=== PATIENT | male | born 1985 | race Hispanic/Latino ===

== ENCOUNTER 2019-12-02 00:06 | Observation (INO) | payer BC ==
[2019-12-02 01:34] LABS: Absolute Lymphocytes (CBC) 1.9 K/uL (0.7-4.9); Basophils % 0.9 % (0-1.3); Hematocrit 41.7 % (39.6-49.0); Lymphocytes % 33.6 % (15.3-44.8); MPV 9.4 fL (7.6-11.3); RBC Red Blood Cell Count 4.44 M/uL (4.33-5.43)
[2019-12-02 01:38] LABS: Protime INR 1.01
[2019-12-02 01:47] LABS: Urine Blood 1+ (NEG); Urine Glucose NEGATIVE (NEG); Urine Protein NEGATIVE (NEG); Urine Specific Gravity 1.015 (1.005-1.030); Urine pH 5.5 (5.0-7.0)
[2019-12-02 01:51] LABS: Potassium 3.7 mmol/L (3.5-5.1)
[2019-12-02] MEDS ORDERED: ASPIRIN 81 MG CHEWABLE TABLET ONE (02:16)
--- NOTE | 2019-12-02 02:29 | ER ---
Nurse's Notes [facility] Name: Tommie Montalvo Age: 33 yrs Sex: Male : 1985 Arrival Date: 12/02/2019 Time: 00:08 Bed 14 Private MD: Diagnosis: Transient ischemia attack. Paresthesia left side face, left upper and lower extremities Presentation: 12/02 00:24 Presenting complaint: Patient states: when he layed down to go to sleep tonight he bb noticed numbness to his left arm, side, leg at approx 2000. Transition of care: patient was not received from another setting of care. Onset of symptoms was December 01, 2019 at 20:00. Risk Assessment: Do you want to hurt yourself or someone else? Patient reports no desire to harm self or others. Initial Sepsis Screen: Does the patient meet any 2 criteria? No. Patient's initial sepsis screen is negative. Does the patient have a suspected source of infection? No. Patient's initial sepsis screen is negative. Care prior to arrival: None. 00:24 Method Of Arrival: Ambulatory bb 00:24 Acuity: SINDHU 3 bb Historical: - Allergies: 00:25 No Known Allergies; bb - Home Meds: 00:25 None [Active]; bb - PMHx: 00:25 None; bb - PSHx: 00:25 None; bb - Immunization history:: Adult Immunizations up to date. - Social history:: Smoking status: Patient/guardian denies using tobacco, Patient uses alcohol, occasionally. - Ebola Screening: : No symptoms or risks identified at this time. Screenin:27 VAN Screening: Arm Drift: Patient shows no arm weakness. Patient is VAN negative. bb 00:30 Abuse screen: Denies threats or abuse. Nutritional screening: No deficits noted. jb4 Tuberculosis screening: No symptoms or risk factors identified. Fall Risk None identified. 01:10 The patient has not been NPO before screening. The patient is alert, able to follow jb4 commands. The patient does not exhibit slurred or garbled speech The patient is not exhibiting difficulty speaking. The patient does not exhibit difficulty understanding words. The patient is able to swallow own secretions with no drooling or need for suction. The patient is unable to swallow own secretions without drooling or the need for suction. Patient tolerated one teaspoon of water. No drooling, immediate coughing, gurgling, or clearing of the throat was noted. The patient tolerated 90mL of water. No drooling, immediate coughing, gurgling, or clearing of the throat was noted. The patient passed the bedside swallow screening. Oral medications may be given as ordered. Contact Physician for further diet orders. Assessment: 00:32 General: Appears in no apparent distress. comfortable, Behavior is calm, cooperative. jb4 Pain: Complains of pain in anterior aspect of left shoulder and left axilla Pain does not radiate. Pain currently is 2 out of 10 on a pain scale. Neuro: Level of Consciousness is awake, alert, obeys commands, Oriented to person, place, time, situation, Online Project Manager are equal bilaterally Moves all extremities. Full function Gait is steady, Speech is normal, Facial symmetry appears normal, Pupils are PERRLA, Numbness in left arm and left leg. Cardiovascular: Patient's skin is warm and dry. Respiratory: Airway is patent Respiratory effort is even, unlabored, Respiratory pattern is regular, symmetrical. GI: No signs and/or symptoms were reported involving the gastrointestinal system. : No signs and/or symptoms were reported regarding the genitourinary system. EENT: No signs and/or symptoms were reported regarding the EENT system. Derm: Skin is intact, Skin is pink, warm \T\ dry. Musculoskeletal: Circulation, motion, and sensation intact. Range of motion: intact in all extremities, Reports numbness in Left side. 01:30 Reassessment: Patient appears in no apparent distress at this time. Patient and/or jb4 family updated on plan of care and expected duration. Pain level reassessed. Patient is alert, oriented x 3, equal unlabored respirations, skin warm/dry/pink. 02:30 Reassessment: Patient appears in no apparent distress at this time. Patient and/or jb4 family updated on plan of care and expected duration. Pain level reassessed. Patient is alert, oriented x 3, equal unlabored respirations, skin warm/dry/pink. 03:03 Reassessment: Patient appears in no apparent distress at this time. Patient and/or jb4 family updated on plan of care and expected duration. Pain level reassessed. Patient is alert, oriented x 3, equal unlabored respirations, skin warm/dry/pink. Pt denies having any more numbness in his left arm and leg. 03:30 Reassessment: Patient appears in no apparent distress at this time. Patient and/or jb4 family updated on plan of care and expected duration. Pain level reassessed. Patient is alert, oriented x 3, equal unlabored respirations, skin warm/dry/pink. See [employer] for further documentation. 11:40 Reassessment: Unable to give report at this time. BRIDGET Lugo asked if LISA Heck could rb1 give report on another pt. and call me back afterwards. 12:18 Reassessment: Called report to LISA Heck. Information from the SBAR was given. All rb1 questions asked and answered. Vital Signs: 00:25 BP 138 / 92; Pulse 75; Resp 14 S; Temp 98.4(O); Pulse Ox 99% on R/A; Weight 88.45 kg bb (R); Height 5 ft. 7 in. (170.18 cm) (R); Pain 4/10; 01:36 BP 121 / 80; Pulse 72; Resp 16; Pulse Ox 100% on R/A; jb4 02:15 BP 116 / 77; Pulse 86; Resp 16; Pulse Ox 99% on R/A; jb4 00:25 Body Mass Index 30.54 (88.45 kg, 170.18 cm) bb NIH Stroke Scale Scores: 01:10 NIHSS Score: 1 jb4 ED Course: 00:08 Patient arrived in ED. ds1 00:25 Triage completed. bb 00:25 Arm band placed on Patient placed in an exam room, on a stretcher, on pulse oximetry. bb 00:27 Gabriele Johnson, LISA is Primary Nurse. jb4 00:50 Victor M Salcedo MD is Attending Physician. pkl 01:09 EKG done, by ED staff, reviewed by Victor M Salcedo MD. ds4 01:10 Patient has correct armband on for positive identification. Placed in gown. Bed in low jb4 position. Call light in reach. Side rails up X 1. teletypesetter monitor on. Pulse ox on. NIBP on. 01:10 Initial lab(s) drawn, by ED staff, sent to lab. Inserted saline lock: 20 gauge in right jb4 antecubital area, using aseptic technique. Blood collected. 02:12 Mynor Kamara is Hospitalizing Provider. pkl 02:33 CT Stroke Brain w/o Contrast In Process Unspecified. EDMS 02:33 Stroke CXR 1 View In Process Unspecified. EDMS 03:30 No provider procedures requiring assistance completed. Patient admitted, IV remains in jb4 place. 07:10 Radiology exam delayed due to pt in MRI, will do u/s after MRI. hr 12:38 No provider procedures requiring assistance completed. Patient admitted, IV remains in rb1 place. Administered Medications: 02:16 Drug: Aspirin 162 mg Route: PO; jb4 Outcome: 02:13 Decision to Hospitalize by Provider. pkl 03:30 Admitted to ER Hold. Please see [employer] for further documentation. jb4 03:30 Condition: stable 03:30 Discharge instructions given to patient, Instructed on the need for admit, Demonstrated understanding of instructions. 12:38 Admitted to Tele accompanied by tech, family with patient, via wheelchair, room 428, rb1 with chart, Report called to LISA Heck 12:38 Condition: stable 12:38 Instructed on the need for admit. 12:43 Patient left the ED. em NIH Stroke Scale - NIH Stroke Score Date: 12/02/2019 Time: 01:10 Total Score = 1 1a. Level of Consciousness (LOC) - 0(Alert) 1b. Level of Consciousness (LOC) (Year \T\ Age) - 0(Both) 1c. LOC Commands (Open \T\ Closes Eyes/Research & Analytics Manager) - 0(Both) 2. Best Gaze (Lateral Gaze Paresis) - 0(Normal) 3. Visual Field Loss - 0(No visual loss) 4. Facial Palsy - 0(Normal) 5a. Left Arm: Motor (10-second hold) - 0(No drift) 5b. Right Arm: Motor (10-second hold) - 0(No drift) 6a. Left Leg: Motor (5-second hold - always test supine) - 0(No drift) 6b. Right Leg: Motor (5-second hold - always test supine) - 0(No drift) 7. Limb Ataxia (finger/nose \T\ heel/zhou - test with eyes open) - 0(Absent) 8. Sensory Loss (pinprick arms/legs/face) - 1(Mild to moderate loss) 9. Best Language: Aphasia (description/naming/reading) - 0(No aphasia) 10. Dysarthria (speech clarity - read or repeat words) - 0(Normal) 11. Extinction and Inattention (visual/tactile/auditory/spatial/personal) - 0(No abnormality) Initials: jb4 Signatures: Dispatcher [employer] Victor M Sheppard MD MD pkl Rod, Haley hr Munoz, Edgar, RN RN Leonor Kellogg ds1 Nadine Reynoso RN RN bb Serg Hi ds4 Francesca Avilez RN Gabriele Patel RN RN jb4 Corrections: (The following items were deleted from the chart) 03:50 00:32 General: Appears in no apparent distress. comfortable, jb4 jb4
--- NOTE | 2019-12-02 02:31 | EDPHYS ---
Physician Documentation [facility] Name: Tommie Montalvo Age: 33 yrs Sex: Male : 1985 Arrival Date: 12/02/2019 Time: 00:08 Bed 14 Private MD: ED Physician Victor M Salcedo HPI: 12/02 01:11 This 33 yrs old Male presents to ER via Ambulatory with complaints of L Side pkl Numbeness. 01:11 The patient's problem is reported as paresthesias, in left upper extremity, in left pkl lower extremity, in left side of face. Onset: The symptoms/episode began/occurred 5 hour(s) ago. Associated signs and symptoms: The patient has no apparent associated signs or symptoms. Patient said he noticed numbness left side of his face, left upper and lower extremities at about 8 PM when he lay ed down to go to sleep. Historical: - Allergies: 00:25 No Known Allergies; bb - Home Meds: 00:25 None [Active]; bb - PMHx: 00:25 None; bb - PSHx: 00:25 None; bb - Immunization history:: Adult Immunizations up to date. - Social history:: Smoking status: Patient/guardian denies using tobacco, Patient uses alcohol, occasionally. - Ebola Screening: : No symptoms or risks identified at this time. ROS: 01:11 Eyes: Negative for injury, pain, redness, and discharge, ENT: Negative for injury, pkl pain, and discharge, Neck: Negative for injury, pain, and swelling, Cardiovascular: Negative for chest pain, palpitations, and edema, Respiratory: Negative for shortness of breath, cough, wheezing, and pleuritic chest pain, Abdomen/GI: Negative for abdominal pain, nausea, vomiting, diarrhea, and constipation, Back: Negative for injury and pain, : Negative for injury, bleeding, discharge, and swelling, MS/Extremity: Negative for injury and deformity, Skin: Negative for injury, rash, and discoloration. 01:11 Neuro: Positive for numbness, of the left side face, left upper and lower extremities. Exam: 01:34 Radiologist reports: No acute findings pkl 01:34 ENT: Nares patent. No nasal discharge, no septal abnormalities noted. Tympanic membranes are normal and external auditory canals are clear. Oropharynx with no redness, swelling, or masses, exudates, or evidence of obstruction, uvula midline. Mucous membranes moist. Neck: Trachea midline, no thyromegaly or masses palpated, and no cervical lymphadenopathy. Supple, full range of motion without nuchal rigidity, or vertebral point tenderness. No Meningismus. 01:34 Head/face: Noted is Numbness left side face. 01:34 ENT: Exam is negative for acute changes. 01:34 Neck: Exam negative for nuchal rigidity. 01:34 Chest/axilla: Exam negative for acute changes. 01:34 Cardiovascular: Rhythm: regular, Pulses: no pulse deficits are appreciated. 01:34 ECG was reviewed by the Attending Physician. 01:34 Respiratory: the patient does not display signs of respiratory distress, Respirations: normal, Breath sounds: are clear throughout. 01:34 Abdomen/GI: Exam negative for acute changes. 01:34 Back: Exam negative for acute changes. 01:34 : Exam negative for acute changes. 01:34 Musculoskeletal/extremity: Extremities: grossly normal except: noted in the left upper and lower extremities: numbness. 01:34 Skin: Exam negative for rash. 01:34 Neuro: Orientation: is normal, Mentation: is normal, Memory: is normal, Cranial nerves: grossly normal, Cerebellar function: is grossly normal, normal finger to nose testing, heel to zhou testing is normal, Motor: is normal, Sensation: numbness, that is mild, of the left side face, left upper and lower extremities, pin prick is decreased in the left side face, left upper and lower extremities, Gait: is steady. Vital Signs: 00:25 BP 138 / 92; Pulse 75; Resp 14 S; Temp 98.4(O); Pulse Ox 99% on R/A; Weight 88.45 kg bb (R); Height 5 ft. 7 in. (170.18 cm) (R); Pain 4/10; 01:36 BP 121 / 80; Pulse 72; Resp 16; Pulse Ox 100% on R/A; jb4 02:15 BP 116 / 77; Pulse 86; Resp 16; Pulse Ox 99% on R/A; jb4 00:25 Body Mass Index 30.54 (88.45 kg, 170.18 cm) NIH Stroke Scale Scores: 01:10 NIHSS Score: 1 jb4 MDM: 00:50 Patient medically screened. pkl 01:20 Data reviewed: vital signs, nurses notes. ED course: Talked to Dr. Harper, no pkl thrombolytic ( symptoms outside 4 hours window and NIH stroke scale 1 ). 12/02 01:06 Order name: Basic Metabolic Panel pkl 12/02 01:06 Order name: CBC with Diff pkl 12/02 01:06 Order name: Protime (+inr) pkl 12/02 01:06 Order name: Ptt, Activated pkl 12/02 01:07 Order name: Basic Metabolic Panel 12/02 01:07 Order name: CBC with Diff 12/02 01:07 Order name: Protime (+inr) 12/02 01:07 Order name: Ptt, Activated 12/02 01:08 Order name: Urine Drug Screen ds4 12/02 01:10 Order name: UDS pkl 12/02 01:27 Order name: Urine Dipstick--Ancillary (enter results) ds4 12/02 01:39 Order name: CBC with Automated Diff; Complete Time: 02:04 EDMS 12/02 01:39 Order name: Protime (+INR); Complete Time: 02:04 EDMS 12/02 01:39 Order name: PTT, Activated Partial Thromb; Complete Time: 02:04 EDMS 12/02 01:06 Order name: CT Stroke Brain w/o Contrast pkl 12/02 01:06 Order name: Stroke CXR 1 View pkl 12/02 01:07 Order name: CT Stroke Brain w/o Contrast 12/02 01:07 Order name: Stroke CXR 1 View 12/02 01:40 Order name: Glucose, Ancillary Testing; Complete Time: 02:04 EDMS 12/02 01:48 Order name: Urine Dipstick-Ancillary; Complete Time: 02:04 EDMS 12/02 01:51 Order name: Basic Metabolic Panel; Complete Time: 02:04 EDMS 12/02 06:05 Order name: Troponin I EDMS 12/02 06:11 Order name: Phosphorus EDMS 12/02 06:12 Order name: Troponin I EDMS 12/02 06:12 Order name: Lipid Profile EDMS 12/02 06:12 Order name: Thyroid Stimulating Hormone EDMS 12/02 07:48 Order name: RAD EDMS 12/02 08:30 Order name: MRI EDMS 12/02 08:33 Order name: MRI EDMS 12/02 08:37 Order name: MRI EDMS 12/02 01:06 Order name: EKG; Complete Time: 01:10 pkl 12/02 01:06 Order name: Accucheck; Complete Time: 01: pkl 12/02 01:06 Order name: Cardiac monitoring; Complete Time: 01:09 pkl 12/02 01:06 Order name: EKG - Nurse/Tech; Complete Time: : pkl 12/02 01:06 Order name: IV Saline Lock; Complete Time: 01: pkl 12/02 01:06 Order name: Labs collected and sent; Complete Time: : pkl 12/02 01:06 Order name: NPO; Complete Time: : pkl 12/02 01:06 Order name: O2 Per Protocol; Complete Time: 01:10 pkl 12/02 01:06 Order name: O2 Sat Monitoring; Complete Time: 01:10 pkl 12/02 01:06 Order name: Stroke Swallow Screen; Complete Time: 01: pkl 12/02 01:07 Order name: EKG; Complete Time: 01:14 wh 12/02 01:07 Order name: Accucheck; Complete Time: :35 wh 12/02 01:07 Order name: Cardiac monitoring; Complete Time: :35 wh 12/02 01:07 Order name: EKG - Nurse/Tech; Complete Time: 01:08 wh 12/02 01:07 Order name: IV Saline Lock; Complete Time: 01:08 wh 12/02 01:07 Order name: Labs collected and sent; Complete Time: 01: wh 12/02 01:07 Order name: NPO; Complete Time: : wh 12/02 01:07 Order name: O2 Per Protocol; Complete Time: 01: wh 12/02 01:07 Order name: O2 Sat Monitoring; Complete Time: : wh 12/02 01:07 Order name: Stroke Swallow Screen; Complete Time: 01:36 wh 12/02 09:00 Order name: US EDMS Administered Medications: 02:16 Drug: Aspirin 162 mg Route: PO; jb4 Disposition: 12/02/19 02:13 Hospitalization ordered by Mynor Kamara for Observation. Preliminary diagnosis is Transient ischemia attack. Paresthesia left side face, left upper and lower extremities. - Bed requested for Telemetry/MedSurg (observation). - Status is Observation. em - Condition is Stable. - Problem is new. - Symptoms have improved. UTI on Admission? No NIH Stroke Scale - NIH Stroke Score Date: 12/02/2019 Time: 01:10 Total Score = 1 1a. Level of Consciousness (LOC) - 0(Alert) 1b. Level of Consciousness (LOC) (Year \T\ Age) - 0(Both) 1c. LOC Commands (Open \T\ Closes Eyes/Crane Service Technician) - 0(Both) 2. Best Gaze (Lateral Gaze Paresis) - 0(Normal) 3. Visual Field Loss - 0(No visual loss) 4. Facial Palsy - 0(Normal) 5a. Left Arm: Motor (10-second hold) - 0(No drift) 5b. Right Arm: Motor (10-second hold) - 0(No drift) 6a. Left Leg: Motor (5-second hold - always test supine) - 0(No drift) 6b. Right Leg: Motor (5-second hold - always test supine) - 0(No drift) 7. Limb Ataxia (finger/nose \T\ heel/zhou - test with eyes open) - 0(Absent) 8. Sensory Loss (pinprick arms/legs/face) - 1(Mild to moderate loss) 9. Best Language: Aphasia (description/naming/reading) - 0(No aphasia) 10. Dysarthria (speech clarity - read or repeat words) - 0(Normal) 11. Extinction and Inattention (visual/tactile/auditory/spatial/personal) - 0(No abnormality) Initials: jb4 Signatures: Dispatcher [employer] Debbie Amor RN RN dw Lam, Pin, MD MD pkBharathi Swartz RN RN em Ballard, Brenda, RN RN bb Bryson, James, RN RN jb4 Shy Vazquez Corrections: (The following items were deleted from the chart) 01:43 01:20 ED course: Talked to Dr. Harper, no thrombolytic ( symptoms outside 4 pkl hours window and NIH stroke scale 0 ). pkl 02:51 02:13 Hospitalization Ordered by Mynor Kamara for Observation. Preliminary bb diagnosis is Transient ischemia attack. Paresthesia left side face, left upper and lower extremities. Bed requested for Telemetry/MedSurg (observation). Status is Observation. Condition is Stable. Problem is new. Symptoms have improved. UTI on Admission? No. pkl 11:29 02:51 12/02/2019 02:13 Hospitalization Ordered by Mynor Kamara for dw Observation. Preliminary diagnosis is Transient ischemia attack. Paresthesia left side face, left upper and lower extremities. Bed requested for [facility] ER HOLD. Status is Observation. Condition is Stable. Problem is new. Symptoms have improved. UTI on Admission? No. bb 12:43 11:29 12/02/2019 02:13 Hospitalization Ordered by Mynor Kamara for em Observation. Preliminary diagnosis is Transient ischemia attack. Paresthesia left side face, left upper and lower extremities. Bed requested for Telemetry/MedSurg (observation). Status is Observation. Condition is Stable. Problem is new. Symptoms have improved. UTI on Admission? No. dw
--- NOTE | 2019-12-02 03:01 | P.HP ---
Certification for Inpatient Patient admitted to: Observation With expected LOS: <2 Midnights Practitioner: I am a practitioner with admitting privileges, knowledge of patient current condition, hospital course, and medical plan of care. Services: Services provided to patient in accordance with Admission requirements found in Title 42 Section 412.3 of the Code of Federal Regulations Patient History Date of Service: 12/02/19 Reason for admission: Left-sided numbness History of Present Illness: 33-year-old gentleman with no known past medical history presented to emergency department with a complaint of numbness on the left side of his face, left upper extremity and lower extremity. Patient mentioned his symptoms started yesterday in the evening. He slept with it hoping his symptoms will resolve by the time he wakes up. Patient woke up later with persistent symptoms and therefore presented to the ED. He denied any weakness or facial deviation or change in vision or speech. Stroke alert was called in the ED. CT head was negative for acute CVA, EKG unremarkable. His only symptoms was left-sided numbness. The patient was considered out of window for TPA. Per report, Dr. Harper was informed who recommended hospitalization for further stroke workup. Allergies No Known Allergies Allergy (Verified 12/02/19 05:35) Home medications list reviewed: Yes (None) Home Medications: NK [No Home Meds] 12/02/19 - Past Medical/Surgical History Past Medical History: Patient denies medical history Past Surgical History: Patient denies surgical history - Family History Mother -: Stroke - Social History Smoking Status: Never smoker Alcohol use: No CD- Drugs: No Place of Residence: Home Review of Systems Other: General: No fever, no malaise, no unintentional weight loss. Eyes: No eye discharge, Respiratory: No cough, no shortness of breath. CVS: No chest pain, no palpitation, no lightheadedness. GI: No abdominal pain, no nausea no vomit, no constipation, no diarrhea. Genitourinary: No dysuria, no urinary frequency, no incontinence, no hematuria. Musculoskeletal: No joint pains, or joint swelling, no gait instability. Neurology: No headache, no asymmetric weakness, no problem with swallowing. Except as documented, all other systems reviewed and negative. Physical Examination - Physical Exam General: Alert, In no apparent distress, Oriented x3 HEENT: Atraumatic, Normocephalic, Mucous membr. moist/pink, EOMI Neck: Supple, 2+ carotid pulse no bruit, JVD not distended, No Thyromegaly Respiratory: Clear to auscultation bilaterally, Normal air movement Cardiovascular: No edema, Normal pulses, Regular rate/rhythm, Normal S1 S2, No murmurs Capillary refill: <2 Seconds Gastrointestinal: Normal bowel sounds, Soft and benign, Non-distended, No tenderness Musculoskeletal: No swelling, No erythema Integumentary: No rashes, No erythema Neurological: Normal speech, Normal strength at 5/5 x4 extr, Cranial nerves 3- 12 intact - Studies Laboratory Data (last 24 hrs) 12/02/19 01:07: PT Cancelled, INR Cancelled, APTT Cancelled 12/02/19 01:07: WBC Cancelled, Hgb Cancelled, Hct Cancelled, Plt Count Cancelled 12/02/19 01:07: Sodium Cancelled, Potassium Cancelled, BUN Cancelled, Creatinine Cancelled, Glucose Cancelled 12/02/19 01:05: PT 11.9, INR 1.01, APTT 31.7 12/02/19 01:05: WBC 5.6, Hgb 14.3, Hct 41.7, Plt Count 196 12/02/19 01:05: Sodium 140, Potassium 3.7, BUN 11, Creatinine 0.97, Glucose 98 Assessment and Plan - Problems (Diagnosis) (1) TIA (transient ischemic attack) Current Visit: Yes Status: Acute - Plan Place under observation Trend troponin Obtain MRI of the brain Neuro checks Check lipid profile Monitor blood pressure Permissive hypertension Echocardiogram and carotid Doppler. Neurology consult. - Advance Directives Does patient have a Living Will: No Does patient have a Durable POA for Healthcare: No
[2019-12-02 03:46] VITALS: BMI 30.5
[2019-12-02 04:13] LABS: Barbiturates NEGATIVE (NEGATIVE); Benzodiazepines NEGATIVE (NEGATIVE); Cocaine NEGATIVE (NEGATIVE); METHAMPHETAM NEGATIVE (NEGATIVE); Methadone NEGATIVE (NEGATIVE); Opiates NEGATIVE (NEGATIVE); Phencyclidine NEGATIVE (NEGATIVE); THC Cannibis NEGATIVE (NEGATIVE)
[2019-12-02] MEDS ORDERED: ONDANSETRON 4 MG/2 ML VIAL IV PRN (05:12)
[2019-12-02] MEDS ORDERED: ACETAMINOPHEN 500 MG TAB PO PRN (05:12)
[2019-12-02] MEDS: NA CHLORIDE 0.9% 1,000 ML IV SCH ×2 (05:12→18:51)
[2019-12-02 06:11] LABS: HDL Cholesterol 38 mg/dL (40-60); LDL Cholesterol, Calculated 133 (<130); Phosphorus 4.3 mg/dL (2.5-4.9); Troponin I < 0.02 ng/mL (0.0-0.045)
--- NOTE | 2019-12-02 07:45 | RAD REPORT ---
EXAM DESCRIPTION: Melinda Kennedy And Chung (2 Views)12/02/2019 6:45 am CLINICAL HISTORY: CVA COMPARISON: December 02, 2019 FINDINGS: The lungs appear clear of acute infiltrate. The heart is normal size IMPRESSION: No acute abnormalities displayed
--- NOTE | 2019-12-02 07:48 | RAD REPORT ---
EXAM DESCRIPTION: Melinda Single View12/02/2019 1:29 am CLINICAL HISTORY: Stroke-like symptoms COMPARISON: none FINDINGS: The lungs appear clear of acute infiltrate. The heart is normal size IMPRESSION: No acute abnormalities displayed
[2019-12-02] MEDS ORDERED: INFLUENZA VACCINE (for 3y+) 0.5 ML DOSE IMVAC ONE (08:00)
--- NOTE | 2019-12-02 08:27 | RAD REPORT ---
EXAM DESCRIPTION: MRI - Brain W/Wo Cont - 12/02/2019 7:31 am CLINICAL HISTORY: Numbness COMPARISON: December 02, [address] TECHNIQUE: Axial, sagittal, and coronal magnetic images of the brain were obtained. 20 cc MultiHance administered intravenously FINDINGS: No abnormal signal within the brain The ventricles are normal in caliber. Diffusion-weighted/ ADC mapping sequences do not demonstrate evidence of an acute infarction. No abnormal enhancement within the brain is seen. An extra-axial fluid collection is not noted. Fluid within the sinuses/mastoids is not seen IMPRESSION: No acute abnormality displayed
--- NOTE | 2019-12-02 08:31 | RAD REPORT ---
EXAM DESCRIPTION: MRI - MRA Head Wo Cont - 12/02/2019 8:18 am CLINICAL HISTORY: Numbness COMPARISON: None. TECHNIQUE: Magnetic resonance angiogram was performed. 3D MIPS reconstruction performed FINDINGS: origin of the right posterior cerebral artery. Mild areas of narrowing of the right posterior cerebral artery are noted. The anterior cerebral, middle cerebral, left posterior cerebral, distal internal carotid and basilar arteries do not demonstrate a significant stenosis. An aneurysm is not displayed. IMPRESSION: Mild narrowing involves portions of the right posterior cerebral artery. origin of the right posterior cerebral artery
--- NOTE | 2019-12-02 08:35 | RAD REPORT ---
EXAM DESCRIPTION: MRI - MRA Neck W/Wo Cont - 12/02/2019 8:18 am CLINICAL HISTORY: TIA COMPARISON: None. TECHNIQUE: Magnetic resonance angiogram of the neck was performed. 19 cc MultiHance was administered intravenously. 3D MIPS reconstruction performed FINDINGS: The common carotid, internal carotid and external carotid arteries do not demonstrate a si gnificant stenosis. An aneurysm is not seen. The left vertebral artery is hypoplastic. Mild narrowing involves the proximal right vertebral artery . IMPRESSION: The left vertebral artery is hypoplastic. Mild narrowing involves the proximal right vertebral artery. NASCET criteria used. Mild 0-49% stenosis Moderate 50-69% stenosis Severe 70-99% stenosis
--- NOTE | 2019-12-02 08:58 | EKG ---
Test Date: 2019-12-02 Test Time: 01:07:21 Test Inspection Engineer: MIHIR MEASUREMENT RESULTS: Intervals: Rate: 75 VA: 138 QRSD: 100 QT: 376 QTc: 419 [place]ondo: P: 17 VA: 138 QRS: 66 T: 31 INTERPRETIVE STATEMENTS: Normal sinus rhythm Normal ECG No previous ECG available for comparison Electronically Signed On 12-02-19 08:57:41 FRUIT DRYER by Valentino Salazar
--- NOTE | 2019-12-02 08:58 | RAD REPORT ---
EXAM DESCRIPTION: USCarotid Artery Bilateral12/02/2019 8:42 am CLINICAL HISTORY: TIA COMPARISON: None FINDINGS: The velocity of the right internal carotid artery equals 74 cm/sec. The right ICA/CCA rati o 0.8 The velocity of the left internal carotid artery equals 94 cm/sec. The left ICA/CCA ratio 1.4 Plaque is not seen within the carotid arteries. The vertebral arteries demonstrate antegrade flow. The left vertebral artery is hypoplastic IMPRESSION: Unremarkable exam NASCET criteria used. Mild 0-49% stenosis Moderate 50-69% stenosis Severe 70-99% stenosis
[2019-12-02] MEDS ORDERED: ASPIRIN EC 81 MG TAB PO SCH (09:00)
[2019-12-02] MEDS ORDERED: ENOXAPARIN 40 MG/0.4 ML SQ SCH (09:00)
[2019-12-02] MEDS ORDERED: ASPIRIN EC 81 MG TAB PO ONE (09:02)
[2019-12-02] MEDS ORDERED: ENOXAPARIN 40 MG/0.4 ML SQ ONE (09:03)
--- NOTE | 2019-12-02 12:25 | RAD REPORT ---
EXAM DESCRIPTION: CT - Ct Stroke Brain Wo Cont - 12/02/2019 2:05 am ADDENDUM #[address] Salcedo at 0134 hours on 12/02/2019 by radiology telecommunications support. Electronically signed by: Effie Adams DO 12/02/2019 1:45 AM HOP [employer]ARMER End of Addendum CLINICAL HISTORY: Numbness left face, left upper and lower extremities COMPARISON: None. TECHNIQUE: Axial [address] imaging of the brain. Reformatted coronal and sagittal images ob tained. This examination was performed according to our departmental dose optimization program, which include s automated exposure control, adjustment of the mA and/or kV according to patient size and/or use of iterative reconstruction technique. FINDINGS: Ventricle size and contour is normal. Extra-axial fluid spaces appear normal. No intra-abd ominal hemorrhage. No mass or midline shift. No edema. No acute infarction or hyperdense vessel evide nt. Normal cerebellum and vermis. Fourth ventricle is midline. No cerebellar tonsillar ectopia. Prepontin e cisterns are not effaced. Normal sella contents. Intraorbital contents appear normal. Clear paranasal sinuses. Mastoid air cells are clear. Intact sku ll base and calvarium. Unremarkable scalp soft tissues. IMPRESSION: 1. Negative CT brain. Electronically signed by: Effie Adams DO 12/02/2019 1:29 AM HOP FARMER Due to temporary technical issues with the PACS/Fluency reporting system, reports are being signed by the in house radiologist as a courtesy to ensure prompt reporting. The interpreting radiologist is f ully responsible for the content of the report.
[2019-12-02 13:09] VITALS: O2SAT 99
[2019-12-02 13:14] VITALS: TEMP 97.7
[2019-12-02] MEDS ORDERED: ACETAMIN/CAFFEINE/BUTALB TAB PO PRN (15:11)
[2019-12-02 16:52] VITALS: BP 117/72
--- NOTE | 2019-12-02 20:43 | P.SSS ---
Patient History Date of Service: 12/02/19 Reason for admission: Left-sided numbness History of Present Illness: 33-year-old gentleman with no known past medical history presented to emergency department with a complaint of numbness on the left side of his face, left upper extremity and lower extremity. Patient mentioned his symptoms started yesterday in the evening. He slept with it hoping his symptoms will resolve by the time he wakes up. Patient woke up later with persistent symptoms and therefore presented to the ED. He denied any weakness or facial deviation or change in vision or speech. Stroke alert was called in the ED. CT head was negative for acute CVA, EKG unremarkable. His only symptoms was left-sided numbness. The patient was considered out of window for TPA. Per report, Dr. Harper was informed who recommended hospitalization for further stroke workup. Allergies No Known Allergies Allergy (Verified 12/02/19 05:35) Home Medications: Aspirin [Aspirin EC 81 MG] 81 mg PO DAILY 30 Days #30 tablet. 12/02/19 Atorvastatin Calcium [Lipitor] 40 mg PO BEDTIME 30 Days #30 tab 12/02/19 Folic Acid 1 mg PO DAILY 30 Days #30 tablet 12/02/19 NK [No Home Meds] 12/02/19 - Past Medical/Surgical History Diabetic: No - Family History Mother -: Stroke - Social History Smoking Status: Never smoker Alcohol use: No CD- Drugs: No Place of Residence: Home Review of Systems Other: General: No fever, no malaise, no unintentional weight loss. Eyes: No eye discharge, Respiratory: No cough, no shortness of breath. CVS: No chest pain, no palpitation, no lightheadedness. GI: No abdominal pain, no nausea no vomit, no constipation, no diarrhea. Genitourinary: No dysuria, no urinary frequency, no incontinence, no hematuria. Musculoskeletal: No joint pains, or joint swelling, no gait instability. Neurology: No headache, no asymmetric weakness, no problem with swallowing. Except as documented, all other systems reviewed and negative. Physical Examination - Vital Signs Temperature: 97.7 F Blood Pressure: 117/72 Pulse: 86 Respirations: 16 Pulse Ox (%): 98 - Physical Exam General: Alert, In no apparent distress, Oriented x3 HEENT: Atraumatic, Normocephalic, PERRLA, Mucous membr. moist/pink, EOMI, Sclerae nonicteric Neck: Supple, JVD not distended Respiratory: Clear to auscultation bilaterally, Normal air movement Cardiovascular: No edema, Normal pulses, Regular rate/rhythm, Normal S1 S2, No murmurs Capillary refill: <2 Seconds Gastrointestinal: Normal bowel sounds, Soft and benign, No tenderness Musculoskeletal: No swelling, No erythema Integumentary: No rashes, No erythema Neurological: Normal gait, Normal speech, Normal strength at 5/5 x4 extr, Cranial nerves 3-12 intact - Studies Laboratory Data (last 24 hrs) 12/02/19 01:07: PT Cancelled, INR Cancelled, APTT Cancelled 12/02/19 01:07: WBC Cancelled, Hgb Cancelled, Hct Cancelled, Plt Count Cancelled 12/02/19 01:07: Sodium Cancelled, Potassium Cancelled, BUN Cancelled, Creatinine Cancelled, Glucose Cancelled 12/02/19 01:05: PT 11.9, INR 1.01, APTT 31.7 12/02/19 01:05: WBC 5.6, Hgb 14.3, Hct 41.7, Plt Count 196 12/02/19 01:05: Sodium 140, Potassium 3.7, BUN 11, Creatinine 0.97, Glucose 98 - Diagnosis (Problem(s)) (1) TIA (transient ischemic attack) Status: Acute Treatment Summary: Patient placed under observation. Stroke workup with MRI of the brain was negative for acute stroke. MRA of the head and neck reported mild narrowing of portions of the posterior cerebral artery. Bilateral carotid duplex was negative for any significant stenosis. Patient was symptom-free during the hospital stay. He stated the numbness got resolved in the ED. He was started on aspirin and Lipitor. Patient was seen and evaluated by neurology-Dr. Harper who recommended long-term aspirin and statins. He was normotensive during the hospital stay. The patient has been advised to avoid smoking and quit drinking alcohol. He is also advised to find a primary care physician. He is deemed clinically stable for discharge per neurology. - Disposition Condition: GOOD Diet: AHA Activity: Ad namita
[2019-12-02] MEDS ORDERED: ATORVASTATIN 20 MG TAB PO SCH (21:00)
--- NOTE | 2019-12-03 03:08 | CON ---
Reason For Consultation: Consultation was called because of TIA. History Of Present Illness: Mr. Montalvo is a 33-year-old right-handed who does not have a phys ician and is not seeing a doctor, reported sudden onset left arm and face numbness and weakness on november. Symptom onset occurred approximately 5 hours before he arrived at the hospital for his symptoms. His workup included a head CT scan showed no acute ischemic or hemorrhagic change and brain MRI was done subsequently showed no acute ischemic or hemorrhagic change as well, ruling out a cute or chronic stroke, but his blood pressures were normotensive. He was afebrile and blood work re vealed normal complete blood count with differential, coagulation panel and essentially unremarkable basic metabolic panel. He did have elevated cholesterol with LDL of 133, HDL low at 38. Thyroid-sti mulating hormone level was normal. Toxicology screen was negative and urinalysis positive for 1+ blo od, otherwise unremarkable. Mr. Montalvo is in his room. He is about 85% back to normal in terms of his left arm strength. His face appears normal. Past Medical History: Denies any. Past Surgical History: None. Allergies: NO KNOWN DRUG ALLERGIES. Medications At Home: None. Family History: Not contributory. Physical Examination: Vital Signs: Blood pressure 117/72, pulse 86, respiratory rate 16, temperature 97.7, saturation 98% room air, weight 190 pounds, height 5 feet 7 inches, BMI 29.8. General: Mr. Montalvo is in his room. He is standing. next to him. He is in no acute distress. HEENT: He is normocephalic, atraumatic. Sclerae anicteric. Oropharynx is moist and pink. Neck: Supple. Chest: Clear. Heart: Regular. Extremities: Show no edema, cyanosis, clubbing. Neurologic: Alert, oriented to person, place, time, and situation. He follows all commands appropri ately. No expressive or receptive aphasias. Cranial nerves 2 through 12 are intact by exam. Motor examination in the upper and lower extremities despite the patient's reported weakness on the left si de, very subtle if any weakness is noted in the left arm at around perhaps 5-/5 proximally and distal ly. In the left lower extremity 5/5, in the right upper and lower extremity 5/5. Sensory exam intac t in upper and lower extremities. Coordination intact in upper and lower extremities. Reflexes 2+ i n upper and lower extremities. Gait, normal stance, right arm swing. Assessment: Mr. Montalvo is a 33-year-old patient with a possible transient ischemic attack. He does major ve mild dyslipidemia. He actually admits to drinking about 12 beer on the weekend and every 2 or 3 a t night. Plan: 1.Stop drinking beer. 2.Aspirin 81 mg daily. 3.Folic acid 1 mg daily. 4.Lipitor 40 mg at bedtime. 5.The patient may return to work in the morning and follow up in Dr. Harper's clinic 1 month. 6.He should have a primary care physician signed and follow appropriately. LAMONTE/EMI Voice ID: [id number] Report ID: [id number]
--- NOTE | 2019-12-03 08:08 | ECHO ---
HEIGHT: 5 ft 7 in WEIGHT: 190 lb 4.8 oz DATE OF STUDY: 12/02/[address]: isaac plaza 2-DIMENSIONAL: YES M.MODE: YES DOPPLER: YES COLOR FLOW: YES TDS: NO PORTABLE: NO DEFINITY: NO BUBBLE STUDY: NO DIAGNOSIS: STROKE CARDIAC HISTORY: CATHERIZATION: NO SURGERY: NO PROSTHETIC VALVE: NO PACEMAKER: NO MEASUREMENTS (cm) DIASTOLIC (NORMALS) SYSTOLIC (NORMALS) IVSd 1.0 (0.6-1.2) LA Diam 3.2 (1.9-4.0) LVEF 63% LVIDd 4.2 (3.5-5.7) LVIDs 2.8 (2.0-3.5) %FS 34% LVPWd 1.0 (0.6-1.2) Ao Diam 2.6 (2.0-3.7) 2 DIMENSIONAL ASSESSMENT: RIGHT ATRIUM: NORMAL LEFT ATRIUM: NORMAL RIGHT VENTRICLE: NORMAL LEFT VENTRICLE: NORMAL TRICUSPID VALVE: NORMAL MITRAL VALVE: NORMAL PULMONIC VALVE: NORMAL AORTIC VALVE: NORMAL PERICARDIAL EFFUSION: NONE AORTIC ROOT: NORMAL LEFT VENTRICULAR WALL MOTION: NORMAL. DOPPLER/COLOR FLOW: NORMAL. COMMENTS: NORMAL 2D ECHO WITH DOPPLER. NO WALL MOTION ABNORMALITY. NO EFFUSION. TECHNOLOGIST: HILARIA KRAMER
[2019-12-03] MEDS ORDERED: ASPIRIN EC 81 MG TAB PO SCH (09:00)
== END 2019-12-02 21:03 | disposition home or self-care (01) ==
LOC: ER 00:06 → ERHOLD 03:30 → 4TH 12:25
PROVIDERS: ADMIT Internal Medicine; ATTEND Internal Medicine
DX: G45.9 Transient cerebral ischemic attack, unspecified (principal)
CPT/HCPCS: 93005; 93306; 85025; 80048; 36415; 84100; 85610; 80061; 82947; 80307 ×8; 85730; 84443; 81003; 84484 ×2; 70450; 71045; 71046; 93880; 70553; 70544; 70549; 97116; 97161; 99285; A9577; J1650; J7030 ×2; G0378 ×2